=== PATIENT | male | born 1965 | race Caucasian/White ===

== ENCOUNTER 2023-10-25 08:25 | Emergency (ER) | payer SELFPAY ==
[2023-10-25 08:31] VITALS: BP 151/100; PULSE 74; RESP 20; TEMP 36.6; O2SAT 97; BMI 38.7
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
[2023-10-25] MEDS: ketorolac 30 mg/mL INJ IVP (09:03)
[2023-10-25] MEDS: orphenadrine 30 mg/mL Inj 2 mL 60 MG IM (09:07)
[2023-10-25] MEDS: dexamethasone 10 mg/mL INJ IM (09:08)
--- NOTE | 2023-10-25 09:33 | XRR_ITS ---
PROCEDURE INFORMATION: Exam: XR Lumbosacral Spine Exam date and time: 10/25/2023 10:07 AM Age: 58 years old Clinical indication: Low back pain; Prior surgery; Surgery date: 6+ months; Surgery type: Lumbar; Additional info: Fall, HX lumbar surgery w fixation TECHNIQUE: Imaging protocol: Radiologic exam of the lumbosacral spine. Views: 2 or 3 views. COMPARISON: No relevant prior studies available. FINDINGS: Tubes, catheters and devices: Post posterior decompression and instrumentation L4-L5. Bones/joints: No hardware complications. Mild degenerative disease at L3-L4 with disc space narrowing and anterior osteophytes. No compression deformity of the vertebral bodies. No spondylolisthesis. Soft tissues: Unremarkable. XR/XR lumbar spine 2-3V* [id number] IMPRESSION: Post posterior instrumentation at L4-L5 with no hardware complications. Mild adjacent segment disease at L3-L4.
[2023-10-25] MEDS: morphine 4 mg/mL SDV 1 mL IVP (10:30)
[2023-10-25 10:34] VITALS: BP 143/89; PULSE 65; RESP 16; O2SAT 98
[2023-10-25 11:09] VITALS: BP 138/84; PULSE 72; O2SAT 97
--- NOTE | 2023-10-28 07:59 | DCPLANNER ---
PCP request sent to [facility]-
== END 2023-10-25 11:23 | disposition home or self-care (01) ==
PROVIDERS: Emergency Provider Family Medicine; PCP Family Medicine Adult Medicine
DX: S39.012A Strain of muscle, fascia and tendon of lower back, initial encounter (principal); Z98.890 Other specified postprocedural states; W01.0XXA Fall on same level from slipping, tripping and stumbling without subsequent striking against object, initial encounter
CPT/HCPCS: 72100; 96372; 96374; 96375; 99284; J1100; J1885; J2270; J2360

== ENCOUNTER 2023-12-01 10:58 | Emergency (ER) | payer SELFPAY ==
--- NOTE | 2023-12-01 11:03 | ECG_ITS ---
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 Measurements Intervals [place] Rate: 81 P: 11 RI: 168 QRS: 34 QRSD: 80 T: 36 QT: 366 QTc: 427 Interpretive Statements SINUS RHYTHM LOW QRS VOLTAGE IN PRECORDIAL LEADS [QRS DEFLECTION < 1.0 mV IN CHEST LEADS] ANTEROSEPTAL MYOCARDIAL INFARCTION , PROBABLY OLD [40+ ms Q WAVE IN V1-V4] No previous ECG available for comparison Electronically Signed On 12-01-2023 21:32:30 CDT by Ara Alberto M.D. [id number]
--- NOTE | 2023-12-01 11:03 | XRR_ITS ---
PROCEDURE INFORMATION: Exam: XR Chest Exam date and time: 12/01/2023 11:28 AM Age: 58 years old Clinical indication: Pain; Angina pectoris; Additional info: Chest pain TECHNIQUE: Imaging protocol: Radiologic exam of the chest. Views: 1 view. COMPARISON: No relevant prior studies available. FINDINGS: Lungs: Unremarkable. No consolidation. Pleural spaces: Unremarkable. No pleural effusion. No pneumothorax. Heart/Mediastinum: Unremarkable. No cardiomegaly. Bones/joints: Unremarkable. XR/XR chest 1V portable [id number] IMPRESSION: No acute findings.
[2023-12-01 11:10] VITALS: BP 180/103; PULSE 79; RESP 17; TEMP 37.4; O2SAT 96; BMI 37.6
--- NOTE | 2023-12-01 11:12 | CT_ITS ---
WS: [id number] CT HEAD TECHNIQUE: Noncontrast CT of the head obtained from the skullbase to the vertex. CLINICAL INFORMATION: boone COMPARISON: None. DLP: 1115.[address] scans at [facility] use at least one of these dose optimization techniques: automated e xposure control; mA and/or kV adjustment per patient size (includes targeted exams where dose is matc hed to clinical indication); or iterative reconstruction. FINDINGS: No evidence of intracranial hemorrhage or mass effect. Ventricular system and basal cisterns are chang nt. Mild small vessel changes with moderate parenchymal volume loss. No extra-axial fluid collections . No evidence of mass or mass effect. Cavernous carotid calcification. Paranasal sinuses and mastoid air cells are well aerated. .Normal visualized soft tissues. CT/CT head wo con* [id number] IMPRESSION: 1. No evidence of intracranial hemorrhage or mass effect. 2. Mild small vessel changes with moderate parenchymal volume loss. 3. No acute intracranial findings.
--- NOTE | 2023-12-01 11:12 | ED_ITS ---
HPI - Chest Pain 2 General: Chief Complaint: Weakness Stated Complaint: CP/arm pain/weak Time Seen by Provider: 12/01/23 11:07 Source: patient Mode of arrival: ambulatory Limitations: no limitations History of Present Illness: 58-year-old male states over the last 2 days he is just not felt well. He states he is felt very fatigued she had a headache states been having some slight chest pain and abdominal pain as well. States the chest pain is a 2 out of 10. Denies any cough or fevers states she has had no energy the last few days denies any vomiting or diarrhea Associated symptoms: Reports abdominal pain; Deny dyspnea, fever(s), nausea or vomiting Related Data Home Medications Medication Instructions Recorded Confirmed aspirin 81 mg tablet,delayed 81 mg PO DAILY 12/01/23 12/01/23 release atorvastatin 80 mg tablet 80 mg PO DAILY 12/01/23 12/01/23 carvedilol 3.125 mg tablet 3.125 mg PO BID 12/01/23 12/01/23 clopidogrel 75 mg tablet 75 mg PO DAILY 12/01/23 12/01/23 glimepiride 2 mg tablet 2 mg PO QAM 12/01/23 12/01/23 insulin NPH-regular 70-30 U-100 See Rx Instructions .Route .COMPLEX 12/01/23 12/01/23 insulin 100 unit/mL subcutaneous pen (Novolin 70-30 FlexPen U-100 Insulin) lisinopril 10 mg tablet 10 mg PO DAILY 12/01/23 12/01/23 metformin 500 mg tablet,extended See Rx Instructions .Route .COMPLEX 12/01/23 12/01/23 release 24 hr Previous Rx's Medication Instructions Recorded diclofenac sodium 75 mg 75 mg PO Q12H PRN pain #20 tabs 10/25/23 tablet,delayed release tizanidine 4 mg tablet 4 mg PO Q6H PRN muscle spasticity 10/25/23 #20 tabs Allergies Allergy/AdvReac Type Severity Reaction Status Date / Time Penicillins Allergy Unknown Verified 10/25/23 08:36 Review of Systems 2 Const: Reports: fatigue; Denies: fever(s), chills, body aches or change in appetite Eyes: Denies: blurry vision or eye discomfort ENMT: Denies: throat pain or dental pain Card: Reports: chest pain Resp: Denies: dyspnea GI: Reports: abdominal pain; Denies: nausea, vomiting or diarrhea Musc: Denies: neck pain or back pain Skin/Breast: Denies: rash Neuro: Reports: headache(s) PFSH ED 2 PFSH: Medical History Fusion of lumbar spine Physical Exam 2 Const: COMMON NORMALS: no acute distress, patient oriented x3 and healthy appearing HENMT: COMMON NORMALS: normocephalic and atraumatic HEAD & SCALP: n ormocephalic and atraumatic Eye: COMMON NORMALS: Equal, round and reactive pupils present and EOMs intact bilaterally PUPIL: Yes Equal, round and reactive pupils present Neck/C-Spine: COMMON NORMALS: full ROM and supple Chest: COMMONS NORMALS: normal inspection of the chest Resp: COMMON NORMALS: normal respiratory effort, No retractions, No use of accessory muscles and clear to auscultation bilaterally AUSCULTATION: clear to auscultation bilaterally Cardio: COMMON NORMALS: regular rate, regular rhythm and No murmurs present (Cardio) RATE: regular rate RHYTHM: regular rhythm GI: COMMON NORMALS: Normal to inspection, nondistended, normoactive bowel sounds present, Soft to palpation, non-tender and no masses PALPATION: Yes Soft to palpation Extremity: COMMON NORMALS: normal to inspection and full ROM Neuro: COMMON NORMALS: patient oriented x3, moves all extremities and no focal motor deficits Psych: COMMON NORMALS: mental status grossly normal, Normal thought process present and cooperative THOUGHT PROCESS: Normal thought process present Skin: COMMON NORMALS: no rashes or lesions noted and no wounds GENERAL SKIN EXAM: no rashes or lesions noted Course 2 Vital Signs: Vital signs: Vital Signs Temperature 97.9 F 12/01/23 11:54 Pulse Rate 73 12/01/23 13:50 Respiratory Rate 16 12/01/23 13:50 Blood Pressure 124/69 12/01/23 13:50 Pulse Oximetry 97 12/01/23 13:50 Oxygen Delivery Me thod Room Air 12/01/23 13:16 MDM - Chest Pain Medical Decision Making Patient presents with fatigue also with headache chest pains of going on for days he has been well-appearing here blood work here is all normal head CT showed no acute abnormalities he has no signs of meningitis or subarachnoid hemorrhage. His troponin here is negative no signs of ACS he stable for discharge he is follow-up with PCP and return if worsening he understands agrees to plan Medical Records I reviewed the patient's medical records. Lab Data I reviewed the patient's lab results. 12/01/23 11:22 12/01/23 11:22 Radiology Impressions Chest X-Ray 12/01/23 11:03 IMPRESSION: No acute findings. Head CT 12/01/23 11:12 IMPRESSION: 1. No evidence of intracranial hemorrhage or mass effect. 2. Mild small vessel changes with moderate parenchymal volume loss. 3. No acute intracranial findings. Laboratory Results WBC 8.97 10^3/uL (3.29-11.43) 12/01/23 11:22 RBC 5.00 10^6/uL (3.85-5.65) 12/01/23 11:22 Hgb 15.30 g/dL (11.27-16.99) 12/01/23 11:22 Hct 47.5 % (37-53) 12/01/23 11:22 MCV 95.0 fl (82-101) 12/01/23 11:22 MCH 30.6 pg (27-33) 12/01/23 11:22 MCHC 32.2 g/dL (30-55) 12/01/23 11:22 RDW 13.4 % (12.1-15.1) 12/01/23 11:22 Plt Count 249 10^3/cmm (157-399) 12/01/23 11:22 MPV 11.3 fL (7.4-10.4) H 12/01/23 11:22 Neut % (Auto) 64.6 % 12/01/23 11:22 Lymph % (Auto) 23.9 % 12/01/23 11:22 [place] % (Auto) 8.2 % 12/01/23 11:22 Eos % (Auto) 1.9 % 12/01/23 11:22 Baso % (Auto) 1.1 % 12/01/23 11:22 Neut # (Auto) 5.79 10^3/uL (1.8-7.7) 12/01/23 11:22 Lymph # (Auto) 2.1 10^3/uL (0.8-4.8) 12/01/23 11:22 [place] # (Auto) 0.7 10^3/uL (0.2-0.9) 12/01/23 11:22 Eos # (Auto) 0.2 10^3/uL (0.0-0.8) 12/01/23 11:22 Baso # (Auto) 0.1 10^3/uL (0.0-0.1) 12/01/23 11:22 Nucleated RBC % (auto) 0 % 12/01/23 11:22 Nucleated RBCs # 0.0 /100WBC 12/01/23 11:22 Sodium 137 mmol/L (136-145) 12/01/23 11:22 Potassium 4.4 mmol/L (3.5-5.1) 12/01/23 11:22 Chloride 102 mmol/L (98-107) 12/01/23 11:22 Carbon Dioxide 23 mmol/L (22-29) 12/01/23 11:22 Anion Gap 16.4 (5-19) 12/01/23 11:22 BUN 13 mg/dL (8-23) 12/01/23 11:22 Creatinine 1.1 mg/dL (0.7-1.2) 12/01/23 11:22 GFR Calculation 68.3 mL/min (90-130) L 12/01/23 11:22 Glucose 336 mg/dL (65-115) H 12/01/23 11:22 POC Glucose 270 mg/dL (70-110) H 12/01/23 11:58 Calculated Osmolality 297 mOsm/kg (285-295) H 12/01/23 11:22 Calcium 9.2 mg/dL (8.5-10.5) 12/01/23 11:22 Total Bilirubin 0.7 mg/dL (0.15-1.2) 12/01/23 11:22 AST 16 U/L (0-40) 12/01/23 11:22 ALT 31 U/L (0-41) 12/01/23 11:22 Alkaline Phosphatase 79 U/L (40-130) 12/01/23 11:22 Troponin T Baseline < 6 ng/L (0-15) 12/01/23 11:22 Total Protein 6.7 g/dL (6.6-8.7) 12/01/23 11:22 Albumin 4.4 g/dL (3.5-5.2) 12/01/23 11:22 Globulin 2.3 g/dL (1.3-4.6) 12/01/23 11:22 Lipase 20 U/L (13-60) 12/01/23 11:22 TSH 2.87 uIU/mL (0.27-4.20) 12/01/23 11:22 SARS-CoV-2 Ag (Rapid) Negative (Negative) 12/01/23 11:55 All radiology interpretation(s) finalized by discharge EKG Data EKG 1: I personally reviewed and interpreted this EKG as follows: EKG interpretation date: 12/01/23 EKG interpretation time: 11:06 Interpretation: nsr hr [address] elevation qrs 80 qtc 404 EKG 2: I personally reviewed and interpreted this EKG as follows: EKG interpretation date: 12/01/23 EKG interpretation time: 13:05 Interpretation: nsr hr [address] elevation qrs 103 qtc 413 Discharge Plan Discharge Patient Disposition: Home Clinical Impression: Generalized weakness, Headache Condition: Stable Prescriptions: No Action tizanidine 4 mg tablet 4 mg PO Q6H PRN (Reason: muscle spasticity) Qty: 20 0RF Rx Instructions: do not exceed 3 doses per 24 hrs diclofenac sodium 75 mg tablet,delayed release (DR/EC) 75 mg PO Q12H PRN (Reason: pain) Qty: 20 0RF atorvastatin 80 mg tablet 80 mg PO DAILY clopidogrel 75 mg tablet 75 mg PO DAILY Aspir-81 81 mg Tablet,Delayed Release (Dr/Ec) 81 mg PO DAILY glimepiride 2 mg tablet 2 mg PO QAM carvedilol 3.125 mg tablet 3.125 mg PO BID lisinopril 10 mg tablet 10 mg PO DAILY metformin 500 mg tablet extended release 24 hr See Rx Instructions .ROUTE .COMPLEX Rx Instructions: Take 1 tablet by mouth in the morning and 2 tablets in the evening. Novolin 70-30 FlexPen U-100 100 unit/mL (70-30) Insulin Pen See Rx Instructions .ROUTE .COMPLEX Rx Instructions: Inject as needed for high blood sugar. Discharge Orders: Discharge ED (Routine); Ordered 12/01/23 Ordered By: Alexa Patrick Referrals: Chago Bui MD [Primary Care Provider] - Discharge Diet: Advance as tolerated Discharge Activity: Resume usual activity Patient Instructions: Weakness (ED) Coding Level of Care Code ED Comfort Station Supervisor for Nishi Hopper
[2023-12-01 11:33] LABS: Basophils # 0.1 10^3/uL (0.0-0.1); Basophils % 1.1 %; Eosinophils # 0.2 10^3/uL (0.0-0.8); Eosinophils % 1.9 %; Hematocrit 47.5 % (37-53); Lymphocytes # 2.1 10^3/uL (0.8-4.8); Lymphocytes % 23.9 %; Mean Corpuscular HGB Conc 32.2 g/dL (30-55); Mean Corpuscular Hemoglobin 30.6 pg (27-33); Mean Platelet Volume 11.3 fL (7.4-10.4); Monocytes # 0.7 10^3/uL (0.2-0.9); Monocytes % 8.2 %; Neutrophils # 5.79 10^3/uL (1.8-7.7); Neutrophils % 64.6 %; Nucleated Red Blood Cells % 0 %; Platelet Count 249 10^3/cmm (157-399); Red Cell Distribution Width 13.4 % (12.1-15.1); White Blood Count 8.97 10^3/uL (3.29-11.43)
[2023-12-01] MEDS: hyDRALAzine 20 mg/mL INJ 1 mL 10 MG IVP (11:42)
[2023-12-01 11:43] VITALS: RESP 16
[2023-12-01] MEDS: morphine 4 mg/mL SDV 1 mL IVP (11:43)
[2023-12-01] MEDS: ondansetron 2 mg/ML SDV 2 mL 4 MG IVP (11:43)
[2023-12-01] MEDS: sodium chloride 0.9% 1,000 ML 999 ML IV (11:44)
[2023-12-01 11:54] VITALS: BP 137/71; PULSE 80; RESP 14; TEMP 36.6; O2SAT 96
[2023-12-01 11:59] LABS: Troponin(5th) Baseline < 6 ng/L (0-15)
[2023-12-01 12:01] LABS: Glucose Point of Care 270 mg/dL (70-110)
[2023-12-01 12:06] LABS: Alanine Aminotransferase 31 U/L (0-41); Albumin Level 4.4 g/dL (3.5-5.2); Alkaline Phosphatase 79 U/L (40-130); Anion Gap 16.4 (5-19); Aspartate Amino Transferase 16 U/L (0-40); Blood Urea Nitrogen 13 mg/dL (8-23); Calcium 9.2 mg/dL (8.5-10.5); Carbon Dioxide 23 mmol/L (22-29); Chloride 102 mmol/L (98-107); Creatinine Clr Calc Pharmacy 95.1192; Globulin 2.3 g/dL (1.3-4.6); Glomerular Filtration Rate 68.3 mL/min (90-130); Glucose 336 mg/dL (65-115); Lipase 20 U/L (13-60); Osmolality Calculated 297 mOsm/kg (285-295); Potassium 4.4 mmol/L (3.5-5.1); Sodium 137 mmol/L (136-145); Thyroid Stimulating Hormone 2.87 uIU/mL (0.27-4.20); Total Bilirubin 0.7 mg/dL (0.15-1.2); Total Protein 6.7 g/dL (6.6-8.7)
[2023-12-01 12:13] VITALS: BP 137/71; PULSE 78; RESP 12; O2SAT 97
[2023-12-01 12:39] LABS: SARS Covid-2 Antigen Negative (Negative)
--- NOTE | 2023-12-01 13:03 | ECG_ITS ---
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 Measurements Intervals [place] Rate: 74 P: 20 LA: 176 QRS: 17 QRSD: 103 T: 47 QT: 385 QTc: 429 Interpretive Statements SINUS RHYTHM LOW QRS VOLTAGE IN PRECORDIAL LEADS [QRS DEFLECTION < 1.0 mV IN CHEST LEADS] ANTEROSEPTAL MYOCARDIAL INFARCTION , OF INDETERMINATE AGE [40+ ms Q WAVE IN V1-V4] Compared to ECG 12/01/2023 11:06:28 No significant changes Electronically Signed On 12-01-2023 21:51:06 CDT by Ara Alberto M.D. [id number]
[2023-12-01 13:16] VITALS: BP 137/71; PULSE 74; RESP 16; O2SAT 97
[2023-12-01 13:50] VITALS: BP 124/69; PULSE 73; RESP 16; O2SAT 97
[2023-12-01 14:00] LABS: Troponin 5 2HR 6.23 ng/L (0-15); Troponin 5 2HR Delta 0.23001 ABS# (0-10)
--- NOTE | 2023-12-02 09:18 | DCPLANNER ---
Message sent to Clinics to establish PCP
== END 2023-12-01 13:45 | disposition home or self-care (01) ==
PROVIDERS: Physician Assistant; Emergency Provider Emergency Medicine; PCP Family Medicine Adult Medicine
DX: R53.1 Weakness (principal); R51.9 Headache, unspecified; Z79.02 Long term (current) use of antithrombotics/antiplatelets; Z79.82 Long term (current) use of aspirin; Z79.84 Long term (current) use of oral hypoglycemic drugs; Z79.4 Long term (current) use of insulin; Z11.52 Encounter for screening for COVID-19
CPT/HCPCS: 36415; 36416; 70450; 71045; 80053; 82962; 83690; 84443; 84484; 85025; 87426; 93005; 96374; 96375; 99285; J0360; J2270; J2405; J7030

== ENCOUNTER 2024-03-03 11:01 | Emergency (ER) | payer SELFPAY ==
--- NOTE | 2024-03-03 11:23 | ECG_ITS ---
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 Measurements Intervals [place] Rate: 95 P: 21 [place]: 170 QRS: 7 QRSD: 76 T: 43 QT: 345 QTc: 435 Interpretive Statements SINUS RHYTHM LOW QRS VOLTAGE IN PRECORDIAL LEADS [QRS DEFLECTION < 1.0 mV IN CHEST LEADS] POSSIBLE ANTERIOR MYOCARDIAL INFARCTION , OF INDETERMINATE AGE [30 ms Q WAVE IN V3/V4, OR R < 0.2 mV IN V4] Compared to ECG 12/01/2023 13:05:39 No significant changes Electronically Signed On 03-04-2024 09:32:13 SALES REPRESENTATIVE ADDING MACHINES by Jani Crews M.D. [id number]
[2024-03-03 11:27] VITALS: BP 148/91; PULSE 100; TEMP 36.9; O2SAT 96; BMI 38.3
--- NOTE | 2024-03-03 12:23 | CT_ITS ---
WS: [id number] CT HEAD NONCONTRAST HISTORY: fall, head injury TECHNIQUE: Contiguous axial imaging performed through the brain. Bone and soft tissue windows. Sagitt al and coronal reformats reviewed. All CT scans at [facility] use at least one of these dose optimization techniques: automated exposure control; mA and/or kV adjustment per patient size (includ es targeted exams where dose is matched to clinical indication); or iterative reconstruction. DLP: 1883.18 mGy.cm COMPARISON: 12/01/2023 No acute intracranial hemorrhage, midline shift or mass effect. Mild atrophy and mild small vessel ischemic disease. No prior infarct. Ventricles: Normal size with no hydrocephalus. Paranasal sinuses: As visualized are clear. Mastoid air cells: Well pneumatized. Calvarium and scalp: Skull is intact with no soft tissue edema or swelling. CT/CT head wo con* [id number] IMPRESSION: 1. No acute intracranial hemorrhage or edema. 2. Very mild cerebral atrophy and small vessel disease.
--- NOTE | 2024-03-03 12:23 | XR_ITS ---
WS: [id number] Exam: XR chest 1V portable [id number] Date/Time of Exam: 03/03/2024 12:29 PM Reason For Exam: syncope Comparison 12/01/2023. Lungs are clear and fully expanded. Normal cardiomediastinal silhouette for technique. Normal bony el ements. XR/XR chest 1V portable [id number] IMPRESSION: 1. Normal chest.
--- NOTE | 2024-03-03 12:24 | W.ED.FALL ---
HPI - Fall General: Chief Complaint: Fall Stated Complaint: passed out in parking lot fell, and has injuries Time Seen by Provider: 03/03/24 12:21 History of Present Illness: 59-year-old man with history of obesity, diabetes, heart disease on Plavix who presents emergency room after having a fall last night in the parking lot. He says he dropped his keys and bent over to pick them up. The next thing he knew he was on the concrete. He does not remember the fall. He thinks he passed out. He has an abrasion on the right side of his face. He has been having a headache. No nausea or vomiting. No altered mental status. He also has some pain in his right hand. Diffuse swelling. Several abrasions. Related Data Home Medications Medication Instructions Recorded Confirmed aspirin 81 mg tablet,delayed 81 mg PO DAILY 12/01/23 03/03/24 release atorvastatin 80 mg tablet 80 mg PO DAILY 12/01/23 03/03/24 carvedilol 3.125 mg tablet 3.125 mg PO BID 12/01/23 03/03/24 clopidogrel 75 mg tablet 75 mg PO DAILY 12/01/23 03/03/24 glimepiride 2 mg tablet 2 mg PO QAM 12/01/23 03/03/24 insulin NPH-regular 70-30 U-100 See Rx Instructions .Route .COMPLEX 12/01/23 03/03/24 insulin 100 unit/mL subcutaneous pen (Novolin 70-30 FlexPen U-100 Insulin) lisinopril 10 mg tablet 10 mg PO DAILY 12/01/23 03/03/24 metformin 500 mg tablet,extended See Rx Instructions .Route .COMPLEX 12/01/23 03/03/24 release 24 hr Previous Rx's Medication Instructions Recorded tizanidine 4 mg tablet 4 mg PO Q6H PRN muscle spasticity 10/25/23 #20 tabs Allergies Allergy/AdvReac Type Severity Reaction Status Date / Time Penicillins Allergy Unknown Verified 03/03/24 11:30 Review of Systems Narrative: Constitutional symptoms: Negative except as documented in HPI. Skin symptoms: Negative except as documented in HPI. Eye symptoms: Negative except as documented in HPI. ENMT symptoms: Negative except as documented in HPI. Respiratory symptoms: Negative except as documented in HPI. Cardiovascular symptoms: Negative except as documented in HPI. Gastrointestinal symptoms: Negative except as documented in HPI. Genitourinary symptoms: Negative except as documented in HPI. Musculoskeletal symptoms: Negative except as documented in HPI. Neurologic symptoms: Negative except as documented in HPI. Psychiatric symptoms: Negative except as documented in HPI. Endocrine symptoms: Negative except as documented in HPI. [facility] ED PFSH: Medical History Fusion of lumbar spine Physical Exam Narrative: EXAM NARRATIVE: General: Alert, no acute distress. Skin: Warm, dry. Head: Normocephalic, abrasion on the right side of the face.. Neck: Supple, trachea midline. Eye: Extraocular movements are intact. Ears, nose, mouth and throat: mucosa moist. Cardiovascular: Regular, Normal peripheral perfusion. Respiratory: Lungs are clear to auscultation, respirations are non-labored, breath sounds are equal, Symmetrical chest wall expansion. Gastrointestinal: Soft, Nontender, Non distended Musculoskeletal: Some swelling of the right hand and fingers. Abrasions. Some difficulty closing his hand secondary to pain and swelling. No obvious deformities Neurological: Alert and oriented, No focal neurological deficit observed. Psychiatric: Cooperative, appropriate mood & affect. Course Vital Signs: Vital signs: Vital Signs Temperature 98.4 F 03/03/24 11:27 Pulse Rate 91 03/03/24 12:58 Blood Pressure 176/105 03/03/24 12:58 Pulse Oximetry 96 03/03/24 12:58 Oxygen Delivery Me thod Room Air 03/03/24 12:58 MDM - Fall Medical Decision Making Medical decision making: Differential diagnosis including but not limited to and based on the above HPI, review of systems and physical exam in this patient with syncope: Vasovagal, orthostatics hypotension, cardiac dysrhythmia, myocardial infarction, infection and hypotension, Orders placed to evaluate differential diagnosis based on the above differential, HPI and physical exam Lab Review: Laboratory results were reviewed and interpreted by myself the emergency room physician. No leukocytosis. No anemia. No renal failure. Patient does have a high blood sugar at 367. Previous measurements have been high as well. CT head: No acute intracranial process. no intracranial hemorrhage, no evidence of infarct. no evidence of acute fracture.This was reviewed and interpreted by myself the ER physician. Chest x-ray: No acute process. No infiltrate. No pneumothorax. This was reviewed and interpreted by myself the emergency room physician. I also reviewed the radiology report. CT of the facial bones: No acute fractures. This was reviewed and interpreted by myself the emergency room physician. I also reviewed the radiology report. X-ray of the hand: No obvious acute fractures or dislocations. This was reviewed and interpreted by myself the emergency room physician. I also reviewed the radiology report. I reviewed the patient's medical record. Reexamination: Patient remained stable. No increased work of breathing. No altered mental status. No focal motor deficits. Assessment and plan: Syncope Head injury Facial contusion Hand contusion Hyperglycemia - Discharged home - Discussed findings and plan with patient. Answered any questions. - All laboratory values were reviewed and interpreted personally by myself, the ER physician - All imaging was reviewed and interpreted personally by myself, the ER physician. - Evaluation and treatment of this problem were appropriate in the emergency setting Lab Data 03/03/24 12:38 12 12:38 Radiology Impressions Chest X-Ray 03/03/24 12:23 IMPRESSION: 1. Normal chest. Head CT 03/03/24 12:23 IMPRESSION: 1. No acute intracranial hemorrhage or edema. 2. Very mild cerebral atrophy and small vessel disease. Face CT 03/03/24 12:42 IMPRESSION: 1. No acute facial bone fracture. 2. Mild soft tissue contusion centered over the RIGHT zygomatic arch and facial bones. Laboratory Results WBC 8.40 10^3/uL (3.29-11.43) 03/03/24 12:38 RBC 5.38 10^6/uL (3.85-5.65) 03/03/24 12:38 Hgb 16.40 g/dL (11.27-16.99) 03/03/24 12:38 Hct 48.3 % (37-53) 03/03/24 12:38 MCV 89.8 fl (82-101) 03/03/24 12:38 MCH 30.5 pg (27-33) 03/03/24 12:38 MCHC 34.0 g/dL (30-55) 03/03/24 12:38 RDW 12.1 % (12.1-15.1) 03/03/24 12:38 Plt Count 243 10^3/cmm (157-399) 03/03/24 12:38 MPV 11.1 fL (7.4-10.4) H 03/03/24 12:38 Neut % (Auto) 67.6 % 03/03/24 12:38 Lymph % (Auto) 21.1 % 03/03/24 12:38 [place] % (Auto) 8.0 % 03/03/24 12:38 Eos % (Auto) 1.8 % 03/03/24 12:38 Baso % (Auto) 0.8 % 03/03/24 12:38 Neut # (Auto) 5.68 10^3/uL (1.8-7.7) 03/03/24 12:38 Lymph # (Auto) 1.8 10^3/uL (0.8-4.8) 03/03/24 12:38 [place] # (Auto) 0.7 10^3/uL (0.2-0.9) 03/03/24 12:38 Eos # (Auto) 0.2 10^3/uL (0.0-0.8) 03/03/24 12:38 Baso # (Auto) 0.1 10^3/uL (0.0-0.1) 03/03/24 12:38 Nucleated RBC % (auto) 0 % 03/03/24 12:38 Nucleated RBCs # 0.0 /100WBC 03/03/24 12:38 Sodium 135 mmol/L (136-145) L 03/03/24 12:38 Potassium 4.5 mmol/L (3.5-5.1) 03/03/24 12:38 Chloride 99 mmol/L (98-107) 03/03/24 12:38 Carbon Dioxide 19 mmol/L (22-29) L 03/03/24 12:38 Anion Gap 21.5 (5-19) H 03/03/24 12:38 BUN 18 mg/dL (8-23) 03/03/24 12:38 Creatinine 1.0 mg/dL (0.7-1.2) 03/03/24 12:38 GFR Calculation 76.0 mL/min (90-130) L 03/03/24 12:38 Glucose 367 mg/dL (65-115) H 03/03/24 12:38 Calculated Osmolality 297 mOsm/kg (285-295) H 03/03/24 12:38 Calcium 9.5 mg/dL (8.5-10.5) 03/03/24 12:38 Total Bilirubin 0.4 mg/dL (0.15-1.2) 03/03/24 12:38 AST 13 U/L (0-40) 03/03/24 12:38 ALT 19 U/L (0-41) 03/03/24 12:38 Alkaline Phosphatase 97 U/L (40-130) 03/03/24 12:38 Troponin T Baseline 7 ng/L (0-15) 03/03/24 12:38 Total Protein 6.7 g/dL (6.6-8.7) 03/03/24 12:38 Albumin 4.3 g/dL (3.5-5.2) 03/03/24 12:38 Globulin 2.4 g/dL (1.3-4.6) 03/03/24 12:38 All radiology interpretation(s) finalized by discharge Discharge Plan Discharge Patient Disposition: Home Clinical Impression: Syncope, Head injury, Contusion of face, Contusion of hand, Hyperglycemia Condition: Stable Prescriptions: No Action tizanidine 4 mg tablet 4 mg PO Q6H PRN (Reason: muscle spasticity) Qty: 20 0RF Rx Instructions: do not exceed 3 doses per 24 hrs atorvastatin 80 mg tablet 80 mg PO DAILY clopidogrel 75 mg tablet 75 mg PO DAILY aspirin [Aspir-81] 81 mg Tablet,Delayed Release (Dr/Ec) 81 mg PO DAILY glimepiride 2 mg tablet 2 mg PO QAM carvedilol 3.125 mg tablet 3.125 mg PO BID lisinopril 10 mg tablet 10 mg PO DAILY metformin 500 mg tablet extended release 24 hr See Rx Instructions .ROUTE .COMPLEX Rx Instructions: Take 1 tablet by mouth in the morning and 2 tablets in the evening. Novolin 70-30 FlexPen U-100 100 unit/mL (70-30) Insulin Pen See Rx Instructions .ROUTE .COMPLEX Rx Instructions: Inject as needed for high blood sugar. Discharge Orders: Discharge ED (Routine); Ordered 03/03/24 Ordered By: Lorena Medrano Discharge Diet: Usual diet Discharge Activity: Increase activity as tolerated Patient Instructions: Syncope (ED), Opioid Safety, Pain Management Activity Restrictions/Additional Instructions: Thank you for choosing [facility] for your healthcare needs today. Please realize this is an emergency room and that we are providing you with a medical screening exam and this may not be complete and all inclusive of all the testing and or work up that you may need to determine your ailment or severity of your illness. You have been screened and evaluated and felt safe for discharge. Health conditions do change or evolve sometimes and as such it is important that you follow up with your Primary Doctor to be re checked, 3-5 days is a general good time frame for follow up. You are always welcome to return to the ED for re assessment if your symptoms are worsening or you have new concerns Coding Level of Care Code ED Spreader Operator Automatic for Nishi Hopper
--- NOTE | 2024-03-03 12:42 | CT_ITS ---
WS: [id number] CT FACIAL BONES HISTORY: trauamatic facial pain TECHNIQUE: Images obtained from the supraorbital location through the mandible. Soft tissue and bone windows are reviewed. Coronal and sagittal reformats have also been submitted. DLP: 1883.[address] scans at [facility] use at least one of these dose optimization techniques: automated e xposure control; mA and/or kV adjustment per patient size (includes targeted exams where dose is matc hed to clinical indication); or iterative reconstruction. COMPARISON: None available. Soft tissue contusion centered over the RIGHT zygomatic arch and maxillary sinus over the orbit and g lobe. No zygomatic arch fracture. No air-fluid levels within the sinuses. No orbit fracture. No nadya bular fracture. The nasal bones slightly deviated to the LEFT but no acute fracture identified. Mild curvature of the nasal septum. Visualized upper cervical spine is normal. No fractures. CT/CT facial bones wo con* [id number] IMPRESSION: 1. No acute facial bone fracture. 2. Mild soft tissue contusion centered over the RIGHT zygomatic arch and facia l bones.
[2024-03-03 12:46] LABS: Basophils # 0.1 10^3/uL (0.0-0.1); Basophils % 0.8 %; Eosinophils # 0.2 10^3/uL (0.0-0.8); Eosinophils % 1.8 %; Hematocrit 48.3 % (37-53); Lymphocytes # 1.8 10^3/uL (0.8-4.8); Lymphocytes % 21.1 %; Mean Corpuscular Hemoglobin 30.5 pg (27-33); Mean Corpuscular Volume 89.8 fl (82-101); Mean Platelet Volume 11.1 fL (7.4-10.4); Monocytes # 0.7 10^3/uL (0.2-0.9); Neutrophils # 5.68 10^3/uL (1.8-7.7); Neutrophils % 67.6 %; Nucleated Red Blood Cells % 0 %; Platelet Count 243 10^3/cmm (157-399); Red Blood Count 5.38 10^6/uL (3.85-5.65); Red Cell Distribution Width 12.1 % (12.1-15.1)
[2024-03-03 12:58] VITALS: BP 176/105; PULSE 91; O2SAT 96
[2024-03-03 13:07] LABS: Troponin(5th) Baseline 7 ng/L (0-15)
[2024-03-03 13:08] LABS: Alanine Aminotransferase 19 U/L (0-41); Albumin Level 4.3 g/dL (3.5-5.2); Alkaline Phosphatase 97 U/L (40-130); Aspartate Amino Transferase 13 U/L (0-40); Blood Urea Nitrogen 18 mg/dL (8-23); Calcium 9.5 mg/dL (8.5-10.5); Carbon Dioxide 19 mmol/L (22-29); Chloride 99 mmol/L (98-107); Creatinine Clr Calc Pharmacy 104.3186; Globulin 2.4 g/dL (1.3-4.6); Glucose 367 mg/dL (65-115); Osmolality Calculated 297 mOsm/kg (285-295); Sodium 135 mmol/L (136-145); Total Bilirubin 0.4 mg/dL (0.15-1.2); Total Protein 6.7 g/dL (6.6-8.7)
[2024-03-03 13:10] LABS: Anion Gap 21.5 (5-19); Potassium 4.5 mmol/L (3.5-5.1)
--- NOTE | 2024-03-03 13:42 | XR_ITS ---
WS: [id number] Exam: XR hand RT min 3V* [id number] Date/Time of Exam: 03/03/2024 1:42 PM Reason For Exam: fall, hand injury No acute fracture. The joints are intact. No soft tissue foreign bodies are seen. XR/XR hand RT min 3V* [id number] IMPRESSION: 1. No acute fracture.
[2024-03-03 14:15] VITALS: BP 167/95; PULSE 90; O2SAT 93
== END 2024-03-03 14:16 | disposition home or self-care (01) ==
PROVIDERS: Emergency Provider Emergency Medicine
DX: R55 Syncope and collapse (principal); S09.90XA Unspecified injury of head, initial encounter; S00.83XA Contusion of other part of head, initial encounter; S60.221A Contusion of right hand, initial encounter; R73.9 Hyperglycemia, unspecified; W19.XXXA Unspecified fall, initial encounter
CPT/HCPCS: 36415; 70450; 70486; 71045; 73130; 80053; 84484; 85025; 93005; 99285